=== PATIENT | female | born 1990 | race Caucasian/White ===

== ENCOUNTER 2016-08-12 00:01 | Emergency (ER) | payer OTHER ==
[~2016-08-12 00:01] MED LIST: CLARITIN10 MG PO; EPIPEN 2-P0.3 MG/0.3 INJ; MIRENA IUD IY
== END 2016-08-12 04:43 | disposition home or self-care (01) ==
LOC: ER1 00:01
DX: R07.89 Other chest pain (principal); N39.0 Urinary tract infection, site not specified; F41.9 Anxiety disorder, unspecified; Z79.899 Other long term (current) drug therapy; V43.62XA Car passenger injured in collision with other type car in traffic accident, initial encounter; Y92.410 Unspecified street and highway as the place of occurrence of the external cause
CPT/HCPCS: 71101; 81001; 84703; 99284

== ENCOUNTER 2016-10-18 23:11 | Emergency (ER) | payer OTHER | END 2016-10-19 03:15 | disposition left against medical advice (07) | LOC: ER1 23:11 | DX: Z53.21 Procedure and treatment not carried out due to patient leaving prior to being seen by health care provider (principal) ==

== ENCOUNTER 2016-10-20 18:07 | Emergency (ER) | payer OTHER | END 2016-10-20 19:15 | disposition home or self-care (01) | LOC: ER1 18:07 | DX: L03.116 Cellulitis of left lower limb (principal) | CPT/HCPCS: 96372; 99283 ==